=== PATIENT | female | born 1980 | race Caucasian/White ===

== ENCOUNTER 2016-05-28 17:42 | Emergency (ER) | payer MEDICAID ==
[~2016-05-28] VITALS: Ht 167.6 cm; Wt 77.1 kg
[2016-05-28 17:42] VITALS: BP 125/77
[2016-05-28] MEDS ORDERED: LISI-607 PO (18:05)
== END 2016-05-28 19:25 | disposition home or self-care (01) ==
LOC: ER 17:50
DX: S93.402A Sprain of unspecified ligament of left ankle, initial encounter (principal); Z88.6 Allergy status to analgesic agent; Z09 Encounter for follow-up examination after completed treatment for conditions other than malignant neoplasm; Z88.8 Allergy status to other drugs, medicaments and biological substances; X58.XXXA Exposure to other specified factors, initial encounter; Y92.89 Other specified places as the place of occurrence of the external cause; Y93.89 Activity, other specified; Y99.8 Other external cause status
CPT/HCPCS: 73610-TC; A4606; Z7610

== ENCOUNTER 2016-12-04 12:58 | Emergency (ER) | payer MEDICAID ==
[~2016-12-04] VITALS: Ht 167.6 cm; Wt 77.1 kg
[~2016-12-04 12:58] MED LIST: LISI-607 PO
[2016-12-04 13:00] VITALS: BP 133/92
[2016-12-04] MEDS ORDERED: ACETAMINOPHEN 325 MG TABLET ONE (13:49)
[2016-12-04] MEDS ORDERED: ACETAMINOPHEN 325 MG TABLET PO ONE (14:00)
== END 2016-12-04 15:37 | disposition short-term general hospital (02) ==
LOC: ER 12:59
DX: S99.921A Unspecified injury of right foot, initial encounter (principal); I10 Essential (primary) hypertension; Z88.8 Allergy status to other drugs, medicaments and biological substances; Z88.6 Allergy status to analgesic agent; W22.8XXA Striking against or struck by other objects, initial encounter; Y92.89 Other specified places as the place of occurrence of the external cause; Y93.89 Activity, other specified; Y99.8 Other external cause status
CPT/HCPCS: 29515; 73630; 99284; A4606; Z7610

== ENCOUNTER 2017-04-07 15:23 | Emergency (ER) | payer MEDICAID ==
[~2017-04-07] VITALS: Ht 165.1 cm; Wt 66.7 kg
[2017-04-07 15:36] VITALS: BP 116/70
[2017-04-07 16:24] LABS: RED BLOOD CELL COUNT(AUTO) 4.86 MIL/uL (4.0-5.2); WHITE BLOOD COUNT (AUTO) 14.5 K/uL (4.3-11.0)
[2017-04-07 16:25] LABS: BASOPHILS # (AUTO) 0.2 /CMM (0.0-0.2); BASOPHILS % (AUTO) 1.1 % (0.0-2.0); HEMATOCRIT 43 % (33-45); HEMOGLOBIN 14.4 g/dL (11.5-14.8); LYMPHOCYTES # (AUTO) 0.3 /CMM (0.8-4.8); LYMPHOCYTES % (AUTO) 1.9 % (20.0-44.0); MEAN CORPUSCULAR HEMOGLOBIN 30 PG (26.0-33.0); MEAN CORPUSCULAR HGB CONC 34 g/dl (31.0-36.0); MEAN CORPUSCULAR VOLUME 88 fL (82-100); MONOCYTES # (AUTO) 0.2 /CMM (0.1-1.30); MONOCYTES % (AUTO) 1.7 % (2.0-12.0); NEUTROPHILS # (AUTO) 13.8 /CMM (1.8-8.9); NEUTROPHILS % (AUTO) 95.3 % (43.0-81.0); PLATELET COUNT (AUTO) 344 /CMM (150-450); RDW COEFFICIENT OF VARIATION 12.1 (11.5-15.0)
[2017-04-07] MEDS ORDERED: IV NS 0.9% 1,000 ML BAG IV ONE (16:30)
[2017-04-07 16:35] LABS: CALCIUM, SERUM 9.9 mg/dL (8.5-10.1); CREATININE 2.3 mg/dL (0.6-1.3); POTASSIUM 4.5 mmol/L (3.5-5.1)
== END 2017-04-07 18:43 | disposition home or self-care (01) ==
LOC: ER 15:27
DX: R11.2 Nausea with vomiting, unspecified (principal); R19.7 Diarrhea, unspecified; N28.9 Disorder of kidney and ureter, unspecified; I10 Essential (primary) hypertension; Z88.6 Allergy status to analgesic agent; Z88.8 Allergy status to other drugs, medicaments and biological substances; Z60.2 Problems related to living alone
CPT/HCPCS: 36415; 80048; 83690; 85025; 99284; A4606; J7030; Z7610

== ENCOUNTER 2018-03-19 14:11 | Emergency (ER) | payer MEDICAID ==
[~2018-03-19] VITALS: Ht 165.1 cm; Wt 77.1 kg
[2018-03-19 14:25] VITALS: BP 111/67
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
== END 2018-03-19 16:50 | disposition home or self-care (01) ==
LOC: ER 14:14
DX: S82.831A Other fracture of upper and lower end of right fibula, initial encounter for closed fracture (principal); I10 Essential (primary) hypertension; Z88.8 Allergy status to other drugs, medicaments and biological substances; Z88.6 Allergy status to analgesic agent; Z60.2 Problems related to living alone; Z79.899 Other long term (current) drug therapy; W50.0XXA Accidental hit or strike by another person, initial encounter; Y93.79 Activity, other specified sports and athletics; Y92.39 Other specified sports and athletic area as the place of occurrence of the external cause; Y99.8 Other external cause status
CPT/HCPCS: 73610-TC

== ENCOUNTER 2019-02-27 20:50 | Emergency (ER) | payer MEDICAID ==
[~2019-02-27] VITALS: Ht 165.1 cm; Wt 79.4 kg
[2019-02-27 21:06] VITALS: BP 115/62
== END 2019-02-27 22:08 | disposition home or self-care (01) ==
LOC: ER 20:55
DX: J11.1 Influenza due to unidentified influenza virus with other respiratory manifestations (principal); I12.9 Hypertensive chronic kidney disease with stage 1 through stage 4 chronic kidney disease, or unspecified chronic kidney disease; N18.9 Chronic kidney disease, unspecified; Z60.2 Problems related to living alone; Z79.899 Other long term (current) drug therapy; Z88.9 Allergy status to unspecified drugs, medicaments and biological substances; Z88.6 Allergy status to analgesic agent

== ENCOUNTER 2019-02-28 19:23 | Emergency (ER) | payer MEDICAID ==
[~2019-02-28] VITALS: Ht 170.2 cm; Wt 79.4 kg
--- NOTE | 2019-02-28 19:54 | NUR ---
PT EDVIN C/O FLU LIKE SYMPTOMS, WAS SEEN HERE YESTERDAY PT AWAKE, ALERT, -SOB, NAD NOTED, VSS, PENDING MD MAN
[2019-02-28] MEDS ORDERED: ACETAMINOPHEN ES 500 MG TABLET ONE (20:20)
[2019-02-28 20:30] LABS: BASOPHILS # (AUTO) 0.1 /CMM (0.0-0.2); BASOPHILS % (AUTO) 0.8 % (0.0-2.0); EOSINOPHILS % (AUTO) 0.2 % (0.0-6.0); HEMATOCRIT 42 % (33-45); HEMOGLOBIN 13.8 g/dL (11.5-14.8); LYMPHOCYTES # (AUTO) 0.8 /CMM (0.8-4.8); LYMPHOCYTES % (AUTO) 9.2 % (20.0-44.0); MEAN CORPUSCULAR HGB CONC 33 g/dl (31.0-36.0); MEAN CORPUSCULAR VOLUME 91 fL (82-100); MONOCYTES # (AUTO) 1.1 /CMM (0.1-1.30); MONOCYTES % (AUTO) 12.8 % (2.0-12.0); NEUTROPHILS # (AUTO) 6.5 /CMM (1.8-8.9); PLATELET COUNT (AUTO) 212 /CMM (150-450); WHITE BLOOD COUNT (AUTO) 8.4 K/uL (4.3-11.0)
[2019-02-28] MEDS ORDERED: ACETAMINOPHEN ES 500 MG TABLET PO ONE (20:30)
[2019-02-28] MEDS ORDERED: IV NS 0.9% 1,000 ML BAG IV ONE (20:30)
[2019-02-28] MEDS ORDERED: BENZONATATE 100 MG CAPSULE PO PRN (20:30)
--- NOTE | 2019-02-28 20:37 | NUR ---
PT AMBULATED TO RESTROOM WITH STEADY GAIT, URINE SAMPLE OBTAINED AND SENT TO LAB.
[2019-02-28] MEDS ORDERED: BENZONATATE 100 MG CAPSULE PO ONE (20:40)
[2019-02-28 20:41] LABS: CALCIUM, SERUM 9.3 mg/dL (8.5-10.1); CREATININE 2.6 mg/dL (0.6-1.3); POTASSIUM 4.6 mmol/L (3.5-5.1)
[2019-02-28 20:41] LABS: APPEARANCE,URINE Clear (CLEAR); BILIRUBIN,URINE Negative (NEGATIVE); BLOOD, URINE Small Ery/uL (NEGATIVE); COLOR,URINE Yellow (YELLOW); KETONES,URINE Negative (NEGATIVE); LEUKOCYTE ESTERASE ,URINE Negative (NEGATIVE); NITRITE, URINE Negative (NEGATIVE); PROTEIN,URINE 100 mg/dl (NEGATIVE); UGLUCOSE Negative (NEGATIVE); UROBILINOGEN,URINE 0.2 EU/dL (0.2)
--- NOTE | 2019-02-28 20:52 | NUR ---
[facility]AN[facility] WAS TAKEN FROM [facility]
[2019-02-28 21:01] LABS: BACTERIA,URINE Rare /HPF (None Seen); SQUAMOUS EPITHELIAL CELL,UR Few /HPF (None Seen); WBC,URINE NONE SEEN /HPF (0-3)
--- NOTE | 2019-02-28 21:42 | NUR ---
CALLED MAURA FOR CHEST XR READ
--- NOTE | 2019-02-28 22:09 | NUR ---
Patient discharged to home in stable condition. Written and verbal after care instructions given. Patient verbalizes understanding of instruction. IV removed. Catheter intact and site benign. Pressure and 4x4 applied to site. No bleeding noted.
[2019-02-28 22:10] VITALS: BP 121/75
== END 2019-02-28 22:10 | disposition home or self-care (01) ==
LOC: EDUNIT# 19:23 → ER 19:24
DX: J10.1 Influenza due to other identified influenza virus with other respiratory manifestations (principal); I12.9 Hypertensive chronic kidney disease with stage 1 through stage 4 chronic kidney disease, or unspecified chronic kidney disease; N18.9 Chronic kidney disease, unspecified; Z88.6 Allergy status to analgesic agent; Z60.2 Problems related to living alone; Z79.899 Other long term (current) drug therapy; Z88.8 Allergy status to other drugs, medicaments and biological substances
CPT/HCPCS: 36415; 71046; 80048-TC; 81000-TC; 85025-TC

== ENCOUNTER 2019-04-29 01:12 | Emergency (ER) | payer MEDICAID ==
[~2019-04-29] VITALS: Ht 165.1 cm; Wt 79.4 kg
[2019-04-29 01:39] VITALS: BP 122/82
[2019-04-29] MEDS ORDERED: CEPHALEXIN MONOHYDRATE 250 MG CAPSULE PO ONE ×2 (02:06→02:30)
--- NOTE | 2019-04-29 02:38 | NUR ---
Patient discharged to home in stable condition. Written and verbal after care instructions given. Patient verbalizes understanding of instruction. Pt ambulatory with a steady gait
== END 2019-04-29 02:39 | disposition home or self-care (01) ==
LOC: ER 01:14
DX: K13.0 Diseases of lips (principal); I10 Essential (primary) hypertension; N18.9 Chronic kidney disease, unspecified; Z88.8 Allergy status to other drugs, medicaments and biological substances; Z88.6 Allergy status to analgesic agent; Z60.2 Problems related to living alone; Z79.899 Other long term (current) drug therapy

== ENCOUNTER 2021-05-28 20:43 | Emergency (ER) | payer MEDICAID ==
[~2021-05-28] VITALS: Ht 165.1 cm; Wt 73.9 kg
[~2021-05-28 20:43] MED LIST changes: -LISI-607 PO; +LISI-768 PO
--- NOTE | 2021-05-28 20:53 | NUR ---
BIBS C/O RIGHT ANKLE PAIN S/P "TWISTING ANKLE" PLAYING [employer] -DEFORMITIES. PT AMBULATORY WITH CRUTCHES
[2021-05-28 20:55] VITALS: BP 118/66
[2021-05-28] MEDS ORDERED: ACETAMINOPHEN 325 MG TABLET PO ONE (21:00)
[2021-05-28] MEDS ORDERED: ACETAMINOPHEN 325 MG TABLET ONE (21:04)
--- NOTE | 2021-05-28 21:05 | NUR ---
PT SEEN BY [employer]
--- NOTE | 2021-05-28 21:55 | NUR ---
CALLED [facility] TO HAVE IMAGES READ
--- NOTE | 2021-05-28 22:53 | NUR ---
Patient discharged to home in stable condition. Written and verbal after care instructions given. Patient verbalizes understanding of instruction. PT ambulatory with a steady gait WITH CRUTCHES AND BRACE TO R ANKLE
== END 2021-05-28 22:55 | disposition home or self-care (01) ==
LOC: ER 21:05
DX: S93.491A Sprain of other ligament of right ankle, initial encounter (principal); I12.9 Hypertensive chronic kidney disease with stage 1 through stage 4 chronic kidney disease, or unspecified chronic kidney disease; N18.9 Chronic kidney disease, unspecified; Z88.6 Allergy status to analgesic agent; Z88.8 Allergy status to other drugs, medicaments and biological substances; Z60.2 Problems related to living alone; Z79.899 Other long term (current) drug therapy; X50.1XXA Overexertion from prolonged static or awkward postures, initial encounter; Y93.89 Activity, other specified; Y92.89 Other specified places as the place of occurrence of the external cause; Y99.8 Other external cause status
CPT/HCPCS: 73610-TC

== ENCOUNTER 2022-03-31 14:14 | Emergency (ER) | payer MEDICAID ==
[~2022-03-31] VITALS: Ht 165.1 cm; Wt 79.4 kg
--- NOTE | 2022-03-31 14:26 | NUR ---
PT WALKED INTO ER STATING "I was called by my MD to come in for Abnormal Labs K+-5.7". PT DENIES CP AND SOB. 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 BREATHING EVEN AND UNLABORED. AAOX4. VSS. AWAITING MD ORDERS.
[2022-03-31] MEDS ORDERED: IV NS 0.9% 1,000 ML IV ONE (14:30)
--- NOTE | 2022-03-31 14:30 | NUR ---
URINE SPECIMEN COLLECTED AND SENT TO LAB.
--- NOTE | 2022-03-31 14:35 | NUR ---
DR. HEARN AT BEDSIDE
--- NOTE | 2022-03-31 14:40 | NUR ---
ESTABLISHED IV ACCESS 20 G LEFT AC. BLOOD DRAWN AND SENT TO LAB.
[2022-03-31 15:15] LABS: BASOPHILS # (AUTO) 0.1 K/uL (0.0-0.2); BASOPHILS % (AUTO) 0.4 % (0.0-2.0); EOSINOPHILS % (AUTO) 0.4 % (0.0-6.0); HEMATOCRIT 42 % (33-45); HEMOGLOBIN 13.5 g/dL (11.5-14.8); LYMPHOCYTES # (AUTO) 2.2 K/uL (0.8-4.8); MEAN CORPUSCULAR HGB CONC 33 g/dl (31.0-36.0); MEAN CORPUSCULAR VOLUME 91 fL (82-100); MONOCYTES # (AUTO) 0.7 K/uL (0.1-1.30); MONOCYTES % (AUTO) 5.3 % (2.0-12.0); NEUTROPHILS % (AUTO) 76.9 % (43.0-81.0); PLATELET COUNT (AUTO) 409 K/uL (150-450); RED BLOOD CELL COUNT(AUTO) 4.58 MIL/uL (4.0-5.2)
[2022-03-31 15:22] LABS: CALCIUM, SERUM 9.3 mg/dL (8.5-10.1); CREATININE 2.5 mg/dL (0.6-1.3); POTASSIUM 4.7 mmol/L (3.5-5.1)
[2022-03-31 16:23] VITALS: BP 126/82
== END 2022-03-31 16:24 | disposition home or self-care (01) ==
LOC: ER 14:21
DX: I12.9 Hypertensive chronic kidney disease with stage 1 through stage 4 chronic kidney disease, or unspecified chronic kidney disease (principal); N18.9 Chronic kidney disease, unspecified; Z88.8 Allergy status to other drugs, medicaments and biological substances; Z60.2 Problems related to living alone; Z79.899 Other long term (current) drug therapy
CPT/HCPCS: 99284; 96360; 93005; 85025; 80048; 84703; 36415; J7030